=== PATIENT | female | born 1980 | race Caucasian/White ===

== ENCOUNTER 2023-07-30 08:22 | Emergency (ER) | payer OTHER ==
[~2023-07-30] VITALS: Ht 170.2 cm; Wt 79.5 kg
[2023-07-30 08:35] VITALS: TEMP 98.9
[2023-07-30] MEDS ORDERED: BACITRACIN TOPIC1 TU TOP (08:52)
[2023-07-30] MEDS ORDERED: CEPHALEXIN500 M1 PO (08:52)
[2023-07-30] MEDS ORDERED: NAPROSYN500 MG PO (08:52)
[2023-07-30] MEDS ORDERED: Naproxen 250 MG TAB PO ONE (09:00)
[2023-07-30] MEDS ORDERED: Cephalexin 500 MG CAP PO ONE (09:00)
[2023-07-30 10:00] VITALS: BP 104/74; PULSE 86
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
== END 2023-07-30 10:10 | disposition home or self-care (01) ==
LOC: COL.ER 08:22
DX: L03.011 Cellulitis of right finger (principal)